=== PATIENT | female | born 1950 | race Caucasian/White ===

== ENCOUNTER 2019-11-22 11:34 | Inpatient (IN) | payer MEDICARE, OTHER, SELFPAY ==
[2019-11-22] VITALS (11 sets, daily range): BP systolic 97–159; BP diastolic 54–98; PULSE 72–102; RESP 14–26; TEMP 35.9–37.6; O2SAT 92–100; BMI 41.3
--- NOTE | ~2019-11-22 | CT_ITS ---
EXAMINATION: CT brain wo [facility] EXAM DATE: 11/22/2019 12:00 INDICATION: Slurred speech. TECHNIQUE: Spiral CT of the head was performed without contrast. Axial, coronal and sagittal images were reviewed. The dose-length product (DLP) for this examination was 605.33 mGy-cm. The exposure w as tailored according to patient size, and iterative reconstruction (ASIR) was used as additional dos e reduction technique. Comparison is made to prior examination from 12/29/2011. FINDINGS: There is no acute intraparenchymal hemorrhage. No evidence of intraparenchymal brain mass lesion. No evidence of acute infarction. Please note that initial head CT has limited sensitivity f or small or acute infarctions. There is mild periventricular and subcortical hypodensity, nonspecific but probably related to small vessel ischemic disease. There is intracranial carotid arteriosclero sis. There are no extra-axial collections. There is no mass effect or midline shift. The orbits ar e unremarkable. Soft tissue is unremarkable. The visualized sinuses and mastoid air cells are well aerated. IMPRESSION: 1. No acute intracranial findings. 2. Chronic age related findings. As per stroke protocol, I called these results, discussed with Pedro Doty MD at 11/22/2019 12: 03 CDT. Reviewed, dictated and finalized at location A. IMPRESSION: 1. No acute intracranial findings. 2. Chronic age related findings. As per stroke protocol, I called these results, discussed with Pedro lopez MD at 11/22/2019 12:03 CDT.
--- NOTE | ~2019-11-22 | US_ITS ---
EXAMINATION: US carotid duplex BI DATE: 11/23/2019 12:52 INDICATION: Slurred speech TECHNIQUE: Grayscale, color Doppler, and pulsed Doppler images of the cervical carotid arteries were obtained. The degree of vessel stenosis is placed in one of the following categories: normal, <50%, 5 0-69%, >=70% but less than near-occlusion, near-occlusion, or total occlusion. Note that percent sten osis relative to normal distal artery lumen diameter is indirectly measured from velocity measurement s as described by Pedro, et al. Radiology 2003; 229:340-346. COMPARISON: Carotid CT angiogram dated 11/22/2019 FINDINGS: The bilateral common, internal and external carotid arteries are tortuous. RIGHT: The right common carotid artery (CCA) peak systolic velocity (PSV) is 92 cm/s. The right internal car otid artery (ICA) PSV is 110 cm/s. The right ICA end-diastolic velocity (EDV) is 28 cm/s. The right I CA/CCA PSV ratio is 1.2. Grayscale and color Doppler images yield an estimate of <50% diameter reduct ion from plaque in the ICA. The external carotid artery (ECA) PSV is 91 cm/s. There is antegrade flow in the right vertebral artery. LEFT: The left CCA PSV is 97 cm/s. The left ICA PSV is 84 cm/s. The left ICA EDV is 21 cm/s. The left ICA/C CA PSV ratio is 0.9. Grayscale and color Doppler images yield an estimate of <50% diameter reduction from plaque in the ICA. The ECA PSV is 107 cm/s. There is antegrade flow in the left vertebral artery . IMPRESSION: 1. <50% stenosis in the right internal carotid artery. 2. <50% stenosis in the left internal carotid artery. Reviewed, dictated and finalized at location A.
--- NOTE | ~2019-11-22 | CT_ITS ---
EXAMINATION: CT abdomen pelvis w con EXAM DATE: 11/22/2019 12:15 INDICATION: Abdominal distention and vomiting. Slurred speech. TECHNIQUE: Spiral CT of the abdomen and pelvis was performed following intravenous injection of 100 m L Omnipaque 350. Axial, coronal and sagittal images were reviewed. The dose-length product (DLP) fo r this examination was 1353.22 mGy-cm. The exposure was tailored according to patient size (auto mA exposure control), and iterative reconstruction (ASIR) was used as additional dose reduction techniqu e. There is no prior study for comparison. FINDINGS: The liver, spleen, adrenal glands and pancreas are unremarkable. There are cholecystectomy clips. Portal and splenic veins are patent. Kidneys enhance symmetrically. There is no hydronephr osis. The uterus is not identified and has likely been surgically resected. The bladder is unremar kable. There is no retroperitoneal or pelvic lymphadenopathy. There is moderate-sized supraumbilic al fat-containing hernia. The appendix is normal. The stomach and small bowel are unremarkable. There is expected amount of c olonic stool. No free intraperitoneal gas. The heart is normal in size. There are no pericardial or pleural effusions. The lung bases are unremarkable. The bones are unremarkable. IMPRESSION: 1. No acute intra-abdominal findings. Reviewed, dictated and finalized at location A.
--- NOTE | ~2019-11-22 | MR_ITS ---
EXAMINATION: MR brain/brain stem wo/w con DATE: 11/23/2019 12:27 INDICATION: Slurred speech TECHNIQUE: Magnetic resonance imaging (MRI) of the brain and brainstem was performed without and with 20 mL Multihance intravenous contrast. Sequences included sagittal and axial T1-weighted SE, axial d iffusion-weighted FS SE, axial T2*-weighted GRE, axial T2-weighted FLAIR, and axial T2-weighted FSE. Postcontrast axial and coronal T1-weighted SE was obtained. Apparent diffusion coefficient (ADC) maps were created. COMPARISON: CT study dated 11/22/2019 and brain MR dated 08/17/2010 FINDINGS: Small old lacunar infarct at the left lentiform nucleus. There are no areas of restricted diffusion t o suggest acute infarction. No intracranial hemorrhage or abnormal intracranial mass lesion. There ar e scattered areas of nonspecific increased T2-weighted signal intensity in the cerebral white matter, predominantly involving the deep and periventricular white matter. There are no intraparenchymal sig nal abnormalities seen on the other pulse sequences. The ventricles are symmetric and normal in size. There are no abnormal extra-axial fluid collections. Flow voids are seen in the cerebral arteries on the T2-weighted sequences consistent with their expected patency. Visualized orbits and soft tissues are unremarkable. There are no areas of abnormal enhancement on the post contrast images although as sessment on the postcontrast images is limited by small amount of motion artifact on the axial and mo derate amount of motion artifact on the coronal images. IMPRESSION: 1. Small old lacunar infarct at the left lentiform nucleus. No acute intracranial process. 2. Moderate scattered nonspecific periventricular predominant white matter T2 hyperintensity consiste nt with chronic small vessel ischemic disease. Reviewed, dictated and finalized at location A. IMPRESSION: 1. Small old lacunar infarct at the left lentiform nucleus. No acute intracrani al process. 2. Moderate scattered nonspecific periventricular predominant white matter T2 h yperintensity consistent with chronic small vessel ischemic disease.
--- NOTE | ~2019-11-22 | CT_ITS ---
EXAMINATION: CTA brain carotid EXAM DATE: 11/22/2019 12:22 INDICATION: Slurred speech. Confusion. TECHNIQUE: Spiral CTA of the carotid arteries was performed with intravenous injection 100 cc of Omn ipaque 350. Axial, coronal, sagittal reformatted images reviewed. Additional reformatted images crea geovanna on dedicated 3-D workstation. NASCET comparable standard used to assess the degree of arterial s tenosis. Spiral CT angiogram cerebral arteries performed with the same intravenous injection of cont rast. Source images of the brain CTA transferred to dedicated workstation for 3-D rotational image cr eation. Coronal, sagittal maximum intensity pixel images also reviewed. The dose-length product (DL P) for this examination was 1104.76 mGy-cm. The exposure was tailored according to patient size, an d iterative reconstruction (ASIR) was used as additional dose reduction technique. The FINDINGS: There is mild to moderate right carotid arteriosclerosis which is accommodated by the bulbs nodule dilation, no carotid stenosis. Both carotid arteries are tortuous, almost touch in the midlin e. Minimal left carotid bulb arterial sclerosis without stenosis. Vertebral arteries are codominant. There is no carotid or vertebral basilar arterial dissection or fibromuscular dysplasia. There are n o cerebral artery aneurysms. There is symmetric cerebral artery arborization. The sagittal, transvers e and sigmoid sinuses enhance normally, no venous sinus thrombosis. Internal cerebral veins also enha nce normally. IMPRESSION: 1. No cervical arterial dissection or cerebral artery aneurysm. 2. Carotid bulb arterial sclerosis without stenosis. Reviewed, dictated and finalized at location A.
--- NOTE | ~2019-11-22 | XR_ITS ---
XR chest 1V portable 11/22/2019 18:23 Indication: Hypoxia. Hypertension. Procedure: AP portable chest Comparison: 05/13/2011 Findings: Borderline heart size. No focal air space disease, pulmonary edema, pleural effusion or mike pected pneumothorax. No acute osseous abnormality. Impression: 1: No acute cardiopulmonary disease. Reviewed, dictated and finalized at location A. Impression: 1: No acute cardiopulmonary disease.
--- NOTE | 2019-11-22 11:41 | ED.NEUROSD ---
HPI - Neuro Symptoms/Deficit General Chief Complaint: Suspected CVA Stated Complaint: neuro symptoms Time Seen by Provider: 11/22/19 11:37 History of Present Illness HPI Narrative: Noted to have slurred speach last night. Family found her minimally responsive today. Thought to possibly have facial droop by EMS. Noted to be covered in vomit and only responding to painful stimuli. Only known medical history is HTN. History limited by medical condition. Related Data Home Medications Medication Instructions Recorded Confirmed nebivolol [Bystolic] 10 mg PO DAILY 11/22/19 11/22/19 Allergies Allergy/AdvReac Type Severity Reaction Status Date / Time celecoxib Allergy Severe Dyspnea / Verified 12/29/11 13:49 SOB Review of Systems Review of Systems: ROS unobtainable: Yes unobtainable due to medical condition PMFSH Past Medical History Medical History (Updated 11/22/19 @ 18:41 by Pedro Doty MD) Dyslipidemia Fibromyalgia HTN (hypertension) Surgical History Surgical History (Updated 11/22/19 @ 18:30 by Tracie Jarvis NP) Hx of cholecystectomy 1992 Family History Family History Mother Diabetes mellitus Father Cerebrovascular accident Unknown Unknown family medical history the son is at the bedside and stated that they are estranged from the rest of the family. Social History Social History Social History: The patient lives home alone. She is . 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 She currently lives in [place] and used to live in this area. She is just here visiting her son. One of her sons is of unknown causes. She is a full code and the son is not aware of any power title attorney. The son stated that she used to abuse narcotics in the past and that she uses marijuana. The marijuana is gummies. Smoking status: Never smoker Alcohol intake: never Substance use type: marijuana, opiates and painkillers Last use: 11/21/2019 Living arrangements: alone Gender identity (if verbalized by the patient): Female Spiritual care concerns: No Exam Const: Other: Severe distress. Awake. Obese. Acutely ill appearing. HENMT: Mouth: Yes dry mucous membranes Other: Dried vomitus on chin Eyes: Pupils: Equal, round and reactive pupils present Resp: Effort & Inspection: tachypneic Auscultation: clear to auscultation bilaterally Cardio: Rate: regular rate Rhythm: regular rhythm GI: Other: ventral abdominal hernia Skin: General skin exam: normal color Neuro: Other: Increased muscle tone. Responds to painful stimuli. mumbles incomprehensibly. moves all extremities Course Vital Signs Vital signs: Vital Signs Temperature 37.6 C 11/22/19 11:35 Pulse Rate 99 11/22/19 11:35 Respiratory Rate 20 11/22/19 11:35 Blood Pressure 158/98 H 11/22/19 11:35 Pulse Oximetry 97 11/22/19 11:35 Temperature 37.6 C H 11/22/19 15:49 Pulse Rate 77 11/22/19 18:00 Respiratory Rate 24 H 11/22/19 15:49 Blood Pressure 159/96 H 11/22/19 15:49 Pulse Oximetry 100 11/22/19 15:49 MDM - Neuro Symptoms/Deficit MDM Narrative Medical decision making narrative: CVA, Overdose, seizure, sepsis, UTI. CT/A brain negative. CT abdomen does not reveal any cause for her mental status. Labs non-specific. Lab Data Attestation: I reviewed the patient's lab results. Result diagrams: 11/22/19 12:19 11/22/19 12:19 Labs: Lab Results 11/22/19 11/22/19 11/22/19 Range/Units 11:39 12:05 12:19 WBC 15.7 H (4.5-10.0) K/mm3 RBC 5.39 (4.2-5.4) M/mm3 Hgb 16.7 H (12.0-15.0) g/dL Hct 49.7 H (37.0-47.0) % MCV 92.2 (80-100) fl MCH 31.0 (26-34) pg MCHC 33.6 (32-36) g/dl RDW 13.4 (11.5-14.5) % Plt Count 368 (150-375) k/mm3 MPV 10.5 H (7.4-10.4) fl Immature Gran % (Auto) 0.6 H (0-0.5) % Neut % (Auto) 88.1 H
[2019-11-22 11:51] LABS: Glucose Point of Care 261 (65-105)
[2019-11-22 12:15] LABS: Estimated Glomerular Filt Rate > 60
[2019-11-22 12:32] LABS: Basophils Absolute Auto 0.1 K/mm3 (0.0-0.1); Basophils Percent Auto 0.4 % (0.2-1.2); Hematocrit 49.7 % (37.0-47.0); Hemoglobin 16.7 g/dL (12.0-15.0); Immature Granulocyte Absolute 0.09 K/mm3 (0.00-0.031); Immature Granulocyte Percent A 0.6 % (0-0.5); Lymphocytes Absolute Auto 1.16 K/mm3 (0.9-3.2); Lymphocytes Percent Auto 7.4 % (18.3-44.2); Mean Corpuscular HGB Conc 33.6 g/dl (32-36); Mean Corpuscular Volume 92.2 fl (80-100); Mean Platelet Volume 10.5 fl (7.4-10.4); Monocytes Absolute Auto 0.6 K/mm3 (0.1-0.6); Monocytes Percent Auto 3.5 % (2.6-8.5); Neutrophils Absolute Auto 13.8 K/mm3 (1.3-6.7); Neutrophils Percent Auto 88.1 % (45.5-73.1); Platelet Count Result 368 k/mm3 (150-375); Red Blood Count 5.39 M/mm3 (4.2-5.4); Red Cell Distribution Width 13.4 % (11.5-14.5); White Blood Count 15.7 K/mm3 (4.5-10.0)
[2019-11-22] MEDS: SODIUM CHLORIDE 0.9% IV 1,000 ML 999 ML IV CONT ×2 (12:34→14:36)
--- NOTE | 2019-11-22 12:40 | PC.NURSE ---
Son here at this time. He told this RN he found an aspirin bottle with different pills in it. upon looking it up by the numbers on the pill, it is [place]. Son states pt has had an addiction problem at this time. made aware.
[2019-11-22 12:43] LABS: Prothrombin Time 13.1 Seconds (11.1-14.7)
[2019-11-22 12:44] LABS: Partial Thromboplastin Time 26.1 SECONDS (22.3-36.8)
[2019-11-22 12:59] LABS: Add Urine Microscopic? YES; Appearance Urine Clear (Clear); Bacteria Urine Trace /hpf; Bilirubin Urine Negative (Negative); Blood Urine 1+ (Negative); Color Urine Yellow (Yellow); Glucose Urine UA 2+ mg/dL (Negative); Ketones Urine Trace mg/dL (Negative); Leukocyte Esterase Ur Negative LEU/UL (Negative); Mucus Urine Rare /lpf; Nitrate Urine Negative (Negative); Protein Urine 3+ mg/dL (Negative); Squamous Epithelial Cell Urine Rare /hpf (Few); Urobilinogen Urine Negative mg/dL (<2.0)
--- NOTE | 2019-11-22 12:59 | ECG_ITS ---
Measurements Intervals [place] Rate: 100 P: 69 [place]: 152 QRS: 3 QRSD: 92 T: 64 QT: 384 QTc: 496 Interpretive Statements SINUS TACHYCARDIA POSSIBLE LEFT ATRIAL ENLARGEMENT POSSIBLE LEFT VENTRICULAR HYPERTROPHY BORDERLINE ST ABNORMALITY- ANTEROLATERAL LEADS BASELINE ARTIFACT- I, II, III, AVR, AVL, AVF, V2 BORDERLINE ECG Electronically Signed On 11-22-2019 13:48:02 CDT by Obed Moon D.O.
[2019-11-22 13:00] LABS: Specific Grav Ur 1.056 (1.001-1.035)
[2019-11-22 13:03] LABS: Acetaminophen < 10 ug/mL (10-30)
[2019-11-22 13:07] LABS: Albumin Level 4.8 g/dL (3.5-5.1); Alkaline Phosphatase 145 U/L (38-126); Anion Gap 17.7 mmol/L (7-16); Aspartate Amino Transferase 39 U/L (14-36); Bilirubin,Total 1.1 mg/dL (0.2-1.3); Blood Urea Nitrogen 18 mg/dL (7-17); CRP 4.5 mg/dL (<1.0); Calcium 9.3 mg/dL (8.4-10.2); Carbon Dioxide 31 mmol/L (22-30); Chloride 85 mmol/L (98-107); Estimated Glomerular Filt Rate > 60; Glucose 284 mg/dL (65-105); Potassium 3.7 mmol/L (3.4-5.0); Sodium 130 mmol/L (137-145)
[2019-11-22 13:08] LABS: Amphetamine Screen Urine Negative (Negative); Barbiturate Screen Urine Negative (Negative); Benzodiazepines Screen Urine Negative (Negative); Cannabinoid Screen Urine Positive (Negative); Cocaine Screen Urine Negative (Negative); Methadone Screen Urine Negative (Negative); Opiate Screen Urine Positive (Negative); Phencyclidine Screen Urine Negative (Negative)
[2019-11-22 13:09] LABS: Lactic Acid Reflex 4.2 mmol/L (0.7-2.1)
[2019-11-22 13:14] LABS: Alanine Aminotransferase 23 U/L (4-35)
[2019-11-22 13:15] LABS: Troponin I 0.046 ng/mL (0.000-0.034)
[2019-11-22] MEDS: NALOXONE HCL 0.4 MG/ML VIAL IV PUSH (13:27)
[2019-11-22 14:22] LABS: Alveolar/Arterial O2 Gradient 56.3 mmHg; Base Excess ABG 5.6 mEq/l (+/-2.0); Fractional Inspired Oxygen 21 %; HCO3 ABG 27.1 mEq/l (22.0-26.0); Oxygen Content ABG 19.6 %vol (16.0-22.0); Oxygen Saturation ABG 93.2 % (95.0-100.0); Oxyhemoglobin 90.2 % THb (90.0-100.0); PCO2 ABG 30.9 mmHg (35.0-45.0); PO2 ABG 56.4 mmHg (80.0-100.0); PO2 FiO2 Ratio Arterial Blood 2.69 %; Total Hemoglobin 15.5 g/dL (12.0-18.0)
[2019-11-22 14:24] LABS: Device ROOM AIR; Modified Allen's Test Pass; Site Drawn LEFT RADIAL; pH ABG 7.561 (7.350-7.450)
[2019-11-22] MEDS: LACTATED RINGERS 1,000 ML 150 ML IV CONT ×2 (14:36→19:46)
--- NOTE | 2019-11-22 15:26 | ADMGEN ---
This patient, Kika Vivas, was admitted to IMU Room 205-01 on 11/22/2019 at 1525. Patient/family oriented to hospital policies and general routines including ID bracelet, bed and alarms, visiting hours, pain management, procedures, bathroom and other care routines, personal items, smoking policy, room service/diet, and visiting hours. Valuables list has been completed. Information on how to activate the Rapid Response Team has been discussed. Patient/Family are encouraged to report perceived risks to care and to ask questions if they do not understand what they are told or what they should do.
[2019-11-22 15:52] LABS: Reflex Lactic Acid Yes or No Add Lactic
[2019-11-22 16:23] LABS: Lactic Acid 2.6 mmol/L (0.7-2.1)
--- NOTE | 2019-11-22 18:18 | PM.IMHP ---
H&P: HPI History of Present Illness Date/Time: 11/22/19 18:18 Chief complaint: Altered Mental Status Narrative: Kika Vivas is a 69 year old female Who initially had lived in this area previously but was moved down to [place] with 1 of her daughters because the patient had been misusing her narcotics. She has another daughter in this area that they unable each other to use narcotics. However since the daughter in [place] had an assignment in [place] the patient came up to this area to stay with her son. The patient came in with an aspirin bottle which was identified as [place]. The son stated that the patient does not typically take [place]. The patient has started to have slurred speech last night was nodding off to sleep. She is very lethargic last night. The son stated this is how she typically gets when she takes narcotics. However today the patient was still minimally responsive. And they noticed that she had a facial droop. The patient was covered in vomit and responded to painful stimuli. Since the patient vomited a CT of the abdomen was performed and read as no acute injury a abdominal findings. CT a of head and neck was read as no cervical arterial dissection are cerebral artery aneurysm. Carotid bulb arterial sclerosis without stenosis read per radiology. The patient was confused and was trying to climb out of the bed when she was admitted to the IMU and I gave her Ativan. The son is answering the questions for me at this time and the patient is resting quietly with her eyes closed. I have some concern for possible aspiration pneumonia and ordered a chest x-ray. Drug toxicology was read as positive for cannabinoids and opiates. Tylenol was less than 10. [place] tablets were found on the patient's belongings. She had them placed in an aspirin bottle. They were sent to pharmacy to be identified. Patient appears to be dry and was given IV fluids. She was also given Narcan and that did nothing for her. Patient is currently on room air. Patient's blood sugar was elevated to be in the 200s and is not known to be diabetic. Also she had some glucose in her urine. Anion gap was calculated to be 14 using [employer]. lactic initially was 4.2 and then 2.6. A chest x-ray was not performed and urinalysis was positive for protein and glucose. Without a UTI. I spent approximately 1 hour with the patient and her family. Date of service 11/22/2019 Review of Systems Review of Systems: All systems reviewed & are unremarkable except as noted in HPI and below Constitutional: Constitutional: Reports as per HPI and Reports no additional constitutional complaints Eyes: Eyes: Reports as per HPI and Reports no additional eye complaints ENT: Reports system reviewed and no additional complaints, except as documented and Reports Normal hearing present Cardiovascular: Cardiovascular: Reports no additional cardiovascular complaints Respiratory: Respiratory: Reports no additional respiratory complaints and Reports no additional respiratory complaints Gastrointestinal: Gastrointestinal: Reports as per HPI and Reports no additional gastrointestinal complaints Musculoskeletal: Musculoskeletal: Reports no additional musculoskeletal complaints Integumentary/Breasts: Skin/Breast: Reports system reviewed and no additional complaints, except as docu and Reports as per HPI Neurologic: Reports system reviewed and no additional complaints, except as documented, Reports as per HPI and Reports Normal hearing present Psychiatric: Psychiatric: Reports no additional psychiatric complaints and Reports as per HPI Endocrine: Endocrine: Reports no additional endocrine complaints Hematologic/Lymphatic: Hematologic/Lymphatic: Reports no additional hematologic/lymphatic complaints Allergic/Immunologic: Allergic/Immunologic: Reports no additional allergic/immunologic complaints [facility] Past Medical History Medical History (Updated 11/22/19 @ 18:41 by Pedro Isabel
[2019-11-22 19:18] LABS: Lactic Acid 1.2 mmol/L (0.7-2.1)
[2019-11-22 19:20] LABS: Hemoglobin A1C 6.2 % (<5.7)
[2019-11-22 19:32] LABS: Troponin I 0.058 ng/mL (0.000-0.034)
[2019-11-22 20:06] LABS: Glucose Point of Care 173 (65-105)
[2019-11-23] VITALS (11 sets, daily range): BP systolic 132–149; BP diastolic 65–98; PULSE 62–78; RESP 16–22; TEMP 36.1–36.4; O2SAT 95–96
--- NOTE | 2019-11-23 | ECHO_ITS ---
Patient Info Name: Kika Vivas Age: 69 years : 1950 Gender: Female Ht: 66 in Wt: 256 lbs BSA: 2.38 m2 HR: 73 bpm BP: 132 / 65 mmHg Technical Quality: Good Exam Date: 11/23/2019 11:03 AM Exam Location: [facility] Patient Status: Inpatient Admit Date: 11/22/2019 Staff Ordering Physician: Tracie Jarvis NP Vehicle Safety Inspector: aZki Schwartz RDCS, RT Attending Provider: Disha Pompa PA-C Referring Physician: Simona MOULTON; Exam Type: CA echo doppler color flow Study Info Indications R29.5 - Transient paralysis Complete two-dimensional, color flow and Doppler transthoracic echocardiogram is performed with contrast to opacify the left ventricle and to improve the deliniation of the left ventricle endocardial borders. Summary 1. Left ventricular chamber dimension is normal. 2. Left ventricular systolic function is normal, estimated at 60-65%. 3. Definity contrast administered improved wall motion interpretation. 4. There is moderately increased left ventricular wall thickness. 5. The left ventricular diastolic function is grade I diastolic dysfunction. 6. E/e' 13 is mildly elevated. 7. The mitral valve has moderately calcified annulus. 8. There is trace pulmonic regurgitation. Left Ventricle E/e' 13 is mildly elevated. Definity contrast administered improved wall motion interpretation. Left ventricular chamber dimension is normal. Left ventricular systolic function is normal, estimated at 60-65%. There is moderately increased left ventricular wall thickness. The left ventricular diastolic function is grade I diastolic dysfunction. Right Ventricle Right ventricular chamber dimension is normal. Right ventricular systolic function is normal. Left Atria Left atrial chamber dimension is normal. Right Atria Right atrial chamber dimension is normal. Aortic Valve The aortic valve is trileaflet. There is no aortic valve stenosis. There is no aortic valve regurgitation. Pulmonic Valve There is trace pulmonic regurgitation. Mitral Valve The mitral valve has moderately calcified annulus. There is no mitral valve stenosis. There is no mitral valve regurgitation. Tricuspid Valve There is no tricuspid valve regurgitation. Pericardium/Pleural There is no pericardial effusion. Inferior Vena Cava Normal inferior vena cava with >50% collapse upon inspiration consistent with normal right atrial pressure, 5 mmHg. Aorta The aortic root size at the sinus of Valsalva is normal. Left Ventricular Outflow Tract Name Value Normal LVOT 2D LVOT Diameter 2.0 cm LVOT Doppler LVOT Peak Gradient 3 mmHg LVOT Mean Gradient 2 mmHg LVOT VTI 21 cm LVOT VTI/AV VTI Ratio 0.9 LVOT Stroke Volume 71 ml LVOT CO 5.1 l/min LVOT CI 2.1 l/min/m2 Pulmonic Valve Name Value Simona
[2019-11-23] MEDS: LACTATED RINGERS 1,000 ML 150 ML IV CONT (03:56)
[2019-11-23 04:35] LABS: Basophils Percent Auto 0.2 % (0.2-1.2); Eosinophils Percent Auto 0.1 % (0-4.4); Hematocrit 36.6 % (37.0-47.0); Hemoglobin 12.4 g/dL (12.0-15.0); Immature Granulocyte Absolute 0.05 K/mm3 (0.00-0.031); Immature Granulocyte Percent A 0.4 % (0-0.5); Lymphocytes Absolute Auto 2.24 K/mm3 (0.9-3.2); Lymphocytes Percent Auto 19.9 % (18.3-44.2); Mean Corpuscular HGB Conc 33.9 g/dl (32-36); Mean Corpuscular Volume 91.5 fl (80-100); Monocytes Absolute Auto 1.1 K/mm3 (0.1-0.6); Monocytes Percent Auto 9.8 % (2.6-8.5); Neutrophils Absolute Auto 7.9 K/mm3 (1.3-6.7); Neutrophils Percent Auto 69.6 % (45.5-73.1); Platelet Count Result 273 k/mm3 (150-375); Red Cell Distribution Width 13.5 % (11.5-14.5); White Blood Count 11.3 K/mm3 (4.5-10.0)
[2019-11-23 04:52] LABS: D Dimer 1.26 ug/mL (<0.48)
[2019-11-23 04:53] LABS: Alanine Aminotransferase 12 U/L (4-35); Albumin Level 3.3 g/dL (3.5-5.1); Alkaline Phosphatase 84 U/L (38-126); Anion Gap 9.1 mmol/L (7-16); Aspartate Amino Transferase 24 U/L (14-36); Bilirubin,Total 0.8 mg/dL (0.2-1.3); Blood Urea Nitrogen 28 mg/dL (7-17); Calcium 7.8 mg/dL (8.4-10.2); Carbon Dioxide 30 mmol/L (22-30); Chloride 95 mmol/L (98-107); Estimated CRCL calculation 64 ml/min; Estimated Glomerular Filt Rate 55; Glucose 137 mg/dL (65-105); Lactate Dehydrogenase 506 U/L (313-618); Magnesium 1.6 mg/dL (1.6-2.3); Potassium 3.1 mmol/L (3.4-5.0); Sodium 131 mmol/L (137-145)
[2019-11-23] MEDS: MAGNESIUM SULF 2 GM/WATER 50ML 2 GM/50 ML BAG IVPB (08:53)
[2019-11-23 08:54] LABS: Glucose Point of Care 119 (65-105)
--- NOTE | 2019-11-23 09:51 | PM.IMPN ---
Progress Note: A&P Assessment and Plan (1) Altered mental status: Qualifiers: Altered mental status type: somnolence Qualified Code(s): R40.0 - Somnolence Code(s): R41.82 - Altered mental status, unspecified Status: Resolved Assessment and Plan: Family reported 8 evening they noted the patient to have slurred speech, then on waking up yesterday morning they found her covered in urine and vomit, difficult to arouse, ongoing confusion through the day yesterday. She does not remember much of this. Resolved this morning, she is back at baseline. Suspect secondary to drug intoxication. Vitals are stable. Stroke workup is ordered. Await MRI, carotid US, and echo. May be able to discharge today. (2) Opioid abuse with intoxication: Code(s): F11.129 - Opioid abuse with intoxication, unspecified Status: Acute Assessment and Plan: UDS positive for cannabanoids and opiates. She reports taking Vicodin and percocet. She denies suicidal or homicidal ideation today. She notes she had an issue becoming addicted to Vicodin and percocet years ago and had been doing well off of narcotics for awhile up until 4 months ago she began using again. She is getting them from a friend in [place]. Discussed the importance of not taking medications not prescribed to her and the danger of continuing to take narcotics in this setting. She agrees and notes that she will not be taking any once discharged. Has been living in [place] for 1 year, used to live in [place], now back in this area living with her son. She agrees that she will be safe to be discharged back to her son's house. Dealing with issues since her son . She reports she has tried 3 antidepressants and is not interested in trying another one at this time. We discussed she will benefit from following up with PCP, psychology/psychiatry and could try CBT. (3) Elevated liver enzymes: Code(s): R74.8 - Abnormal levels of other serum enzymes Status: Resolved Assessment and Plan: Normal today. May have been reactive secondary to above. CT abdomen is unremarkable. (4) Fibromyalgia: Code(s): M79.7 - Fibromyalgia Status: Chronic Assessment and Plan: She deals with pain control issues, noted above. Her pain is at her baseline today. (5) HTN (hypertension): Qualifiers: Hypertension type: essential hypertension Qualified Code(s): I10 - Essential (primary) hypertension Code(s): I10 - Essential (primary) hypertension Status: Acute Assessment and Plan: Resumed her home bystolic. (6) Elevated blood sugar: Code(s): R73.9 - Hyperglycemia, unspecified Status: Chronic Assessment and Plan: Hgb A1c 6.2, increased risk for type 2 DM. Follow up with PCP. Subjective Date/time seen: 11/23/19 09:45 Interval history: Ms. Vivas is a 69yo F admitted due to altered mental status. She is feeling back at her baseline this morning and is alert and oriented, answering all questions appropriately. She denies any nausea or vomiting. No chest pain or shortness of breath. She is tired, did not sleep last night. She reports she has fibromyalgia and her generalized pain is no worse than normal. Review of Systems Review of Systems: Narrative: Twelve systems were reviewed with pertinent positives and negatives as per HPI. Except as documented, all other systems were reviewed and are negative. Exam Narrative: Exam Narrative: General: Female resting comfortably supine in bed in no acute distress. Affect is flat. HEENT: Normocephalic, EOMI, oral mucosa moist. Cardiovascular: Rate and rhythm are regular. Respiratory: Lungs clear to auscultation all fox. Non-labored breathing. Tolerating room air. Abdomen: Soft
[2019-11-23] MEDS: NEBIVOLOL HCL 5 MG TABLET 10 MG PO (10:11)
[2019-11-23] MEDS: POTASSIUM CHLORIDE 20 MEQ TABLET 40 MEQ PO (10:12)
[2019-11-23] MEDS: PERFLUTREN LIPID MICROSPHERES 1.5 ML VIAL DILUTED TO 10 ML TOTAL VOLUME IV PUSH (11:24)
[2019-11-23 13:51] LABS: Glucose Point of Care 125 (65-105)
--- NOTE | 2019-11-23 14:46 | PM.DS ---
DS: Admitting Diagnosis Admitting Diagnosis Admitting Diagnosis: Altered mental status, unspecified DS: Discharge Diagnosis Discharge Diagnosis (1) Altered mental status: Qualifiers: Altered mental status type: somnolence Qualified Code(s): R40.0 - Somnolence Code(s): R41.82 - Altered mental status, unspecified Status: Resolved Assessment and Plan: Date of Service 11/23/19 Ms. Vivas is a 69yo F with history of hypertension, hyperlipidemia, fibromyalgia, and known previous opioid use disorder who presented to ED for evaluation of altered mental status. She is from the area but has been living in [place] the last 1 year, most recently is back in the area visiting and living with her son in [place]. Evening prior to arrival, her son noticed some slightly slurred speech prior to bedtime, and when they woke up the following morning he found the patient covered in urine, vomit, and was difficult to wake up. She was not speaking or following commands. She was still confused much of the day on arrival to the hospital. Urine drug screen was positive for opiates and cannabinoids. CT brain and CTA head/neck, CT abdomen/pelvis showed no acute findings on arrival. MRI brain did show a small old lacunar infarct at the left lentiform nucleus, but with no acute findings to explain her symptoms. She was instructed to start taking a baby aspirin daily for stroke risk reduction. Carotid dopplers were normal. Echocardiogram is detailed below, grade I diastolic dysfunction with normal EF 60-65%. Ultimately it is felt that this episode was likely a result of opioid intoxication. She admitted having issues with narcotic dependence for years and had recently moved down to [place] last year to be near her daughter. She was able to wean off the opioids for a period of time but has now found a friend in [place] that she buys Vicodin and Percocet from. She describes feeling more depressed after her son and has been back to using/abusing opioids for the last 4 months. She denies any suicidal ideation and notes she had no intentions of hurting herself. We discussed at length the dangers of taking opioids, especially those not prescribed to her, and recommend re-establishing care with psychiatrty or psychology/talk therapy. The following morning she was alert and oriented, cognitively back at baseline and hemodynamically stable for discharge 11/23/19 with instructions to follow up with PCP and psych. She will discharge to home living with her son. (2) Opioid abuse with intoxication: Code(s): F11.129 - Opioid abuse with intoxication, unspecified Status: Acute Assessment and Plan: UDS positive for cannabanoids and opiates. She reports taking Vicodin and percocet. She denies suicidal or homicidal ideation today. She notes she had an issue becoming addicted to Vicodin and percocet years ago and had been doing well off of narcotics for awhile up until 4 months ago she began using again. She is getting them from a friend in [place]. Discussed the importance of not taking medications not prescribed to her and the danger of continuing to take narcotics in this setting. She agrees and notes that she will not be taking any once discharged. Has been living in [place] for 1 year, used to live in [place], now back in this area living with her son. She agrees that she will be safe to be discharged back to her son's house. Dealing with issues since her son . She reports she has tried 3 antidepressants and is not interested in trying another one at this time. We discussed she will benefit from following up with PCP, psychology/psychiatry and could try CBT. (3) Elevated liver enzymes: Code(s): R74.8 - Abnormal levels of other serum enzymes Status: Resolved Assessment and Plan: Normal today. May have been reactive secondary to above. CT abdomen is unremarkable.
--- NOTE | 2019-12-01 11:02 | PC.NURSE ---
Blood cx negative
== END 2019-11-23 16:22 | disposition home or self-care (01) | DRG 897 ==
LOC: ANHED 11:47 → ANHIMU 14:49
PROVIDERS: Nurse Practitioner; Admitting Provider Internal Medicine; Emergency Provider Emergency Medicine; Visit Provider Physician Assistant
DX: F11.129 Opioid abuse with intoxication, unspecified (principal); M79.7 Fibromyalgia; I10 Essential (primary) hypertension; R73.9 Hyperglycemia, unspecified; R74.8 Abnormal levels of other serum enzymes
CPT/HCPCS: 36415; 36600; 70450; 70496; 70498; 70553; 71045; 74177; 80053; 80307; 81001; 82728; 82805; 83036; 83605; 83615; 83735; 84443; 84484; 85025; 85380; 85610; 85730; 86140; 87040; 87086; 93005; 93306; 93880; 96361; 96374; 99285; A9270; A9577; J2060; J2310; J3475; J7030; J7120; Q9957; Q9967